=== PATIENT | male | born 1975 | race Caucasian/White ===

== ENCOUNTER 2017-01-29 12:54 | Emergency (ER) | payer OTHER ==
[~2017-01-29] VITALS: Ht 182.9 cm; Wt 104.4 kg
[~2017-01-29 12:54] MED LIST: ATIVAN0.5 MG PO; BACTRIM,SEPT1 TABLE1 PO; BENTYL10 MG PO; CIPRO500 MG PO; COLACE100 MG PO; DILAUDID2 MG PO; DULCOLAX5 MG PO; EMEND40 MG PO; ENDOCET 5-3251 EACH PO; FLAGYL500 MG PO; FLEXERIL10 MG PO; HYDROCODON-ACE1 EAC7 PO; LEVAQUIN500 MG PO; LOMOTIL TABLET1 EACH PO; OMEPRAZOLE40 M1 PO; OXYCODONE HCL15 MG PO; OXYCODONE HCL5 MG PO; OXYCONTIN15 MG PO; PRILOSEC40 MG PO; PROMETHAZINE HC25 M1 PO; PYRIDIUM200 MG PO; REGLAN10 MG PO; XELODA150 MG PO; ZOFRAN ODT4 MG PO; ZOFRAN4 MG PO; ZOLPIDEM TARTRA10 MG PO
[2017-01-29 14:19] LABS: HEMATOCRIT 37.3 % (38.0-50.0); MCH 27.2 PG (29.0-34.0); MCHC 35.4 G/DL (30.0-36.0); MCV 76.7 FL (86-99); MEAN PLAT.VOLUME 10.3 uM^3 (9.0-12.4); PLATELET COUNT 269 K/uL (156-360); RBC DIS.WIDTH-CV 13.6 % (11.8-14.6); RED BLOOD COUNT 4.86 M/uL (4.00-5.50); WHITE BLOOD COUNT 4.6 K/uL (4.1-10.2)
[2017-01-29 14:28] LABS: CHLORIDE 107 mEq/L (99-109); POTASSIUM 3.9 mEq/L (3.7-5.4); SODIUM 138 mEq/L (136-147)
[2017-01-29 14:30] LABS: GLUCOSE 99 mg/dL (70-99)
[2017-01-29 14:31] LABS: ANION GAP 12 MEQ/L (2-14)
[2017-01-29 14:32] LABS: TOTAL BILIRUBIN 0.2 mg/dL (0.0-1.0)
[2017-01-29 14:34] LABS: ALKALINE PHOSPHATASE 47 IU/L (3-129); GFR ESTIMATE (CALCULATED) > 59 mL/min/
[2017-01-29 14:35] LABS: UREA NITROGEN (BUN) 11 mg/dL (9-23)
[2017-01-29 14:37] LABS: LIPASE 29 U/L (1.0-51.0)
[2017-01-29] MEDS ORDERED: ZOFRAN ODT4 MG PO (14:37)
[2017-01-29 15:35] VITALS: BP 128/82
== END 2017-01-29 15:44 | disposition home or self-care (01) ==
LOC: EME 12:54
PROVIDERS: Nurse Practitioner Family
DX: R11.2 Nausea with vomiting, unspecified (principal); R19.7 Diarrhea, unspecified; T45.1X5A Adverse effect of antineoplastic and immunosuppressive drugs, initial encounter; C18.9 Malignant neoplasm of colon, unspecified; Z93.3 Colostomy status
CPT/HCPCS: 80053; 83690; 85027; 99281; 99284; J2405; J3010; J7030

== ENCOUNTER 2017-05-01 12:15 | Inpatient (IN) | payer OTHER ==
[~2017-05-01] VITALS: Ht 182.9 cm; Wt 114.5 kg
[~2017-05-01 12:15] MED LIST changes: -PRILOSEC40 MG PO
[2017-05-01 13:31] LABS: HEMATOCRIT 41.3 % (38.0-50.0); MCH 26.4 PG (29.0-34.0); MCHC 33.9 G/DL (30.0-36.0); MCV 77.8 FL (86-99); PLATELET COUNT 280 K/uL (156-360); RBC DIS.WIDTH-CV 12.9 % (11.8-14.6); RBC DIS.WIDTH-SD 36.4 % (39-53); RED BLOOD COUNT 5.31 M/uL (4.00-5.50)
[2017-05-01 13:42] LABS: ALBUMIN 3.8 g/dL (3.2-4.8)
[2017-05-01 13:43] LABS: CHLORIDE 103 mEq/L (99-109); POTASSIUM 3.7 mEq/L (3.7-5.4); SODIUM 137 mEq/L (136-147)
[2017-05-01 13:45] LABS: GLUCOSE 111 mg/dL (70-99); TOTAL PROTEIN 6.9 g/dL (6.4-8.3)
[2017-05-01 13:47] LABS: TOTAL BILIRUBIN 0.3 mg/dL (0.0-1.0)
[2017-05-01 13:48] LABS: ALKALINE PHOSPHATASE 57 IU/L (3-129)
[2017-05-01 13:49] LABS: CREATININE 0.8 mg/dL (0.6-1.3); GFR ESTIMATE (CALCULATED) > 59 mL/min/ (58.99-99999)
[2017-05-01 13:50] LABS: AST (GOT) 14 IU/L (2-34); UREA NITROGEN (BUN) 12 mg/dL (9-23)
[2017-05-01 13:52] LABS: ALT (GPT) 16 IU/L (3-49)
[2017-05-01] MEDS ORDERED: PROMETHAZINE HC25 M1 PO (18:19)
[2017-05-01] MEDS ORDERED: ERGOCALCIF50000 UNIT PO (18:20)
[2017-05-01] MEDS ORDERED: VENTOLIN HFA18 GM IH (18:20)
[2017-05-01] MEDS ORDERED: COMPAZINE10 MG PO (18:20)
[2017-05-01 19:49] LABS: APPEARANCE CLEAR ((CLEAR)); BILIRUBIN NEGATIVE; BLOOD NEGATIVE; COLOR YELLOW ((YELLOW)); GLUCOSE (STRIP) NEGATIVE; KETONES 5; LEUKOCYTES NEGATIVE; NITRITE NEGATIVE; PROTEIN (STRIP) 30; UCUL ADDED? NO; UROBILINOGEN 0.2 MG/DL (0.2-1.0)
[2017-05-01 20:17] LABS: SPECIFIC GRAVITY 1.092 (1.000-1.030)
[2017-05-02 01:10] VITALS: BP 115/55
[2017-05-02 04:15] VITALS: BP 98/55
[2017-05-02 08:11] VITALS: BP 100/59
[2017-05-02 09:43] LABS: BASOPHIL (%) 0.3 % (0-1); EOSINOPHIL (%) 2.8 % (0-5); EOSINOPHIL COUNT 0.1 K/uL (0-0.3); HEMATOCRIT 35.3 % (38.0-50.0); IMMATURE GRANULOCYTE (%) 0.3 % (0.0-0.7); LYMPHOCYTE (%) 11.9 % (15-42); LYMPHOCYTE COUNT 0.5 K/uL (1.0-2.8); MCH 25.8 PG (29.0-34.0); MCHC 32.6 G/DL (30.0-36.0); MCV 79.3 FL (86-99); MONOCYTE (%) 16.5 % (3-12); MONOCYTE COUNT 0.6 K/uL (0-0.8); NEUTROPHIL (%) 68.2 % (45-76); NEUTROPHIL COUNT 2.7 K/uL (1.8-6.4); PLATELET COUNT 223 K/uL (156-360); RED BLOOD COUNT 4.45 M/uL (4.00-5.50); WHITE BLOOD COUNT 3.9 K/uL (4.1-10.2)
[2017-05-02 09:57] LABS: HEMOGLOBIN 11.5 G/DL (12.5-16.6)
[2017-05-02 10:05] LABS: CHLORIDE 105 MEQ/L (99-109); CREATININE 0.7 MG/DL (0.6-1.3); GFR ESTIMATE (CALCULATED) > 59 mL/min/ (58.99-99999); GLUCOSE 100 mg/dL (70-99); POTASSIUM 3.7 MEQ/L (3.7-5.4); SODIUM 141 MEQ/L (136-147); UREA NITROGEN (BUN) 8 mg/dL (9-23)
[2017-05-02 16:37] VITALS: BP 119/63
[2017-05-03 00:03] VITALS: BP 109/67
[2017-05-03 05:10] LABS: BASOPHIL (%) 0.5 % (0-1); EOSINOPHIL (%) 3.1 % (0-5); EOSINOPHIL COUNT 0.1 K/uL (0-0.3); HEMATOCRIT 32.6 % (38.0-50.0); HEMOGLOBIN 10.8 G/DL (12.5-16.6); IMMATURE GRANULOCYTE (%) 0.2 % (0.0-0.7); LYMPHOCYTE (%) 14.6 % (15-42); LYMPHOCYTE COUNT 0.6 K/uL (1.0-2.8); MCH 26.4 PG (29.0-34.0); MCHC 33.1 G/DL (30.0-36.0); MCV 79.7 FL (86-99); MONOCYTE (%) 15.3 % (3-12); MONOCYTE COUNT 0.7 K/uL (0-0.8); NEUTROPHIL (%) 66.3 % (45-76); NEUTROPHIL COUNT 2.8 K/uL (1.8-6.4); PLATELET COUNT 168 K/uL (156-360); RBC DIS.WIDTH-CV 12.9 % (11.8-14.6); RBC DIS.WIDTH-SD 36.7 % (39-53); RED BLOOD COUNT 4.09 M/uL (4.00-5.50); WHITE BLOOD COUNT 4.3 K/uL (4.1-10.2)
[2017-05-03 05:37] LABS: CHLORIDE 107 MEQ/L (99-109); CREATININE 0.8 MG/DL (0.6-1.3); GFR ESTIMATE (CALCULATED) > 59 mL/min/ (58.99-99999); GLUCOSE 93 mg/dL (70-99); POTASSIUM 3.9 MEQ/L (3.7-5.4); SODIUM 140 MEQ/L (136-147); UREA NITROGEN (BUN) 6 mg/dL (9-23)
[2017-05-03 07:33] VITALS: BP 123/81
[2017-05-03 15:50] VITALS: BP 118/65
[2017-05-04 00:22] VITALS: BP 126/62
[2017-05-04 06:20] LABS: HEMATOCRIT 33.6 % (38.0-50.0); HEMOGLOBIN 11.1 G/DL (12.5-16.6); MCH 26.4 PG (29.0-34.0); PLATELET COUNT 169 K/uL (156-360); RBC DIS.WIDTH-CV 13.1 % (11.8-14.6); RBC DIS.WIDTH-SD 37.2 % (39-53); WHITE BLOOD COUNT 4.6 K/uL (4.1-10.2)
[2017-05-04 06:45] LABS: CHLORIDE 106 MEQ/L (99-109); CREATININE 0.8 MG/DL (0.6-1.3); GFR ESTIMATE (CALCULATED) > 59 mL/min/ (58.99-99999); GLUCOSE 112 mg/dL (70-99); POTASSIUM 3.9 MEQ/L (3.7-5.4); SODIUM 142 MEQ/L (136-147); UREA NITROGEN (BUN) 4 mg/dL (9-23)
[2017-05-04 08:22] VITALS: BP 109/55
[2017-05-04 08:27] VITALS: BP 108/58
[2017-05-04 16:16] VITALS: BP 106/65
[2017-05-05 00:35] VITALS: BP 109/63
[2017-05-05 09:37] VITALS: BP 106/57
[2017-05-05 09:44] LABS: HEMATOCRIT 35.2 % (38.0-50.0); HEMOGLOBIN 11.7 G/DL (12.5-16.6); MCHC 33.2 G/DL (30.0-36.0); MCV 78.2 FL (86-99); PLATELET COUNT 204 K/uL (156-360); RBC DIS.WIDTH-CV 12.9 % (11.8-14.6); RBC DIS.WIDTH-SD 36.7 % (39-53); WHITE BLOOD COUNT 3.9 K/uL (4.1-10.2)
[2017-05-05 17:06] VITALS: BP 112/70
[2017-05-05 23:39] VITALS: BP 115/61
[2017-05-06 06:55] VITALS: BP 114/60
[2017-05-06 09:46] LABS: HEMATOCRIT 36.6 % (38.0-50.0); HEMOGLOBIN 12.1 G/DL (12.5-16.6); MCHC 33.1 G/DL (30.0-36.0); MCV 78.5 FL (86-99); PLATELET COUNT 193 K/uL (156-360); RBC DIS.WIDTH-CV 13.1 % (11.8-14.6); RBC DIS.WIDTH-SD 37.1 % (39-53); RED BLOOD COUNT 4.66 M/uL (4.00-5.50); WHITE BLOOD COUNT 3.7 K/uL (4.1-10.2)
== END 2017-05-06 13:09 | disposition home or self-care (01) | DRG 389 ==
LOC: EME 12:15 → RME 12:15 → EDOF 18:05 → 5EAST 18:05 → ENRESERV 18:14 → EDOF 19:10 → ENRESERV 21:35 → 5EAST 05-02 00:52
PROVIDERS: Hospitalist; Internal Medicine; Physician Assistant; Surgery
DX: K56.609 Unspecified intestinal obstruction, unspecified as to partial versus complete obstruction (principal); C19 Malignant neoplasm of rectosigmoid junction; C79.11 Secondary malignant neoplasm of bladder; Z93.3 Colostomy status; Z90.49 Acquired absence of other specified parts of digestive tract; E66.9 Obesity, unspecified; Z68.34 Body mass index [BMI] 34.0-34.9, adult; G35 Multiple sclerosis; G89.3 Neoplasm related pain (acute) (chronic); Z87.442 Personal history of urinary calculi
CPT/HCPCS: 71045; 74018; 74177; 80048; 80053; 81003; 83605; 85025; 85027; 99202; 99281; 99285; J1170; J1650; J2270; J2405; J7040; J7120; S0028

== ENCOUNTER 2017-08-06 16:13 | Inpatient (IN) | payer OTHER ==
[~2017-08-06] VITALS: Ht 182.9 cm; Wt 96.9 kg
[~2017-08-06 16:13] MED LIST changes: +COMPAZINE10 MG PO; +ERGOCALCIF50000 UNIT PO; +VENTOLIN HFA18 GM IH
[2017-08-06 16:56] LABS: ALBUMIN 4.1 g/dL (3.2-4.8); CHLORIDE 93 mEq/L (99-109); POTASSIUM 3.5 mEq/L (3.7-5.4); SODIUM 133 mEq/L (136-147)
[2017-08-06 16:58] LABS: GLUCOSE 114 mg/dL (70-99); HEMATOCRIT 43.7 % (38.0-50.0); HEMOGLOBIN 14.9 G/DL (12.5-16.6); MCH 25.4 PG (29.0-34.0); MCHC 34.1 G/DL (30.0-36.0); MCV 74.6 FL (86-99); PLATELET COUNT 383 K/uL (156-360); RBC DIS.WIDTH-CV 13.6 % (11.8-14.6); RBC DIS.WIDTH-SD 36.4 % (39-53); RED BLOOD COUNT 5.86 M/uL (4.00-5.50); WHITE BLOOD COUNT 10.9 K/uL (4.1-10.2)
[2017-08-06 16:59] LABS: TOTAL PROTEIN 8.2 g/dL (6.4-8.3)
[2017-08-06 17:00] LABS: TOTAL BILIRUBIN 0.5 mg/dL (0.0-1.0)
[2017-08-06 17:02] LABS: ALKALINE PHOSPHATASE 59 IU/L (3-129); CREATININE 1.2 mg/dL (0.6-1.3); GFR ESTIMATE (CALCULATED) > 59 mL/min/ (58.99-99999)
[2017-08-06 17:03] LABS: UREA NITROGEN (BUN) 17 mg/dL (9-23)
[2017-08-06 17:04] LABS: AST (GOT) 17 IU/L (2-34)
[2017-08-06 17:05] LABS: ALT (GPT) 15 IU/L (3-49)
[2017-08-06 19:20] LABS: BASOPHIL (%) 0.3 % (0-1); EOSINOPHIL (%) 0.7 % (0-5); EOSINOPHIL COUNT 0.1 K/uL (0-0.3); IMMATURE GRANULOCYTE (%) 0.4 % (0.0-0.7); LYMPHOCYTE (%) 7.2 % (15-42); LYMPHOCYTE COUNT 0.8 K/uL (1.0-2.8); MONOCYTE COUNT 1.1 K/uL (0-0.8); NEUTROPHIL (%) 81.4 % (45-76); NEUTROPHIL COUNT 8.9 K/uL (1.8-6.4)
[2017-08-06 19:31] LABS: LIPASE 20 U/L (1.0-51.0)
[2017-08-06 20:26] LABS: APPEARANCE SL.HAZY ((CLEAR)); BILIRUBIN NEGATIVE; BLOOD LARGE; COLOR AMBER ((YELLOW)); GLUCOSE (STRIP) NEGATIVE; KETONES NEGATIVE; LEUKOCYTES TRACE; NITRITE NEGATIVE; PROTEIN (STRIP) 100; SPECIFIC GRAVITY 1.057 (1.000-1.030); UROBILINOGEN 0.2 MG/DL (0.2-1.0)
[2017-08-06 21:54] LABS: RED BLOOD CELLS TNTC /HPF (0-5)
[2017-08-06 21:55] LABS: BACTERIA 1+ /HPF; EPITHELIAL CELLS RARE /HPF; UCUL ADDED? YES
[2017-08-06 21:56] LABS: MUCUS 1+ /LPF
[2017-08-06] MEDS ORDERED: NARCAN4 MG NS (22:10)
[2017-08-06] MEDS ORDERED: OXYCODONE HCL30 MG PO (22:10)
[2017-08-06] MEDS ORDERED: POTASSIUM CHLO20 ME2 PO (22:12)
[2017-08-06] MEDS ORDERED: ONDANSETRON HCL4 MG PO (22:13)
[2017-08-07] VITALS (7 sets, daily range): BP systolic 108–147; BP diastolic 59–78
[2017-08-07 06:58] LABS: HEMATOCRIT 35.2 % (38.0-50.0); MCH 25.3 PG (29.0-34.0); MCV 76.9 FL (86-99); PLATELET COUNT UNABLE TO REPORT K/uL (156-360); RBC DIS.WIDTH-CV 13.7 % (11.8-14.6); RBC DIS.WIDTH-SD 37.9 % (39-53); WHITE BLOOD COUNT 5.2 K/uL (4.1-10.2)
[2017-08-07 06:59] LABS: HEMOGLOBIN 11.6 G/DL (12.5-16.6); PLAT.SUFFICIENCY ADEQUATE; RED BLOOD COUNT 4.58 M/uL (4.00-5.50)
[2017-08-07 07:03] LABS: INTER. NORMALIZED RATIO 1.2
[2017-08-07 07:19] LABS: CHLORIDE 95 MEQ/L (99-109); CREATININE 0.9 MG/DL (0.6-1.3); GFR ESTIMATE (CALCULATED) > 59 mL/min/ (58.99-99999); GLUCOSE 107 mg/dL (70-99); POTASSIUM 3.1 MEQ/L (3.7-5.4); SODIUM 137 MEQ/L (136-147); UREA NITROGEN (BUN) 13 mg/dL (9-23)
[2017-08-08 00:41] VITALS: BP 131/60
[2017-08-08 03:41] VITALS: BP 135/65
[2017-08-08 07:21] VITALS: BP 158/83
[2017-08-08 10:27] LABS: HEMATOCRIT 34.7 % (38.0-50.0); HEMOGLOBIN 11.6 G/DL (12.5-16.6); MCH 25.7 PG (29.0-34.0); MCHC 33.4 G/DL (30.0-36.0); MCV 76.9 FL (86-99); PLATELET COUNT 267 K/uL (156-360); RBC DIS.WIDTH-CV 14.1 % (11.8-14.6); RBC DIS.WIDTH-SD 39.6 % (39-53); RED BLOOD COUNT 4.51 M/uL (4.00-5.50); WHITE BLOOD COUNT 13.9 K/uL (4.1-10.2)
[2017-08-08 10:54] LABS: CHLORIDE 103 MEQ/L (99-109); CREATININE 1.1 MG/DL (0.6-1.3); GFR ESTIMATE (CALCULATED) > 59 mL/min/ (58.99-99999); GLUCOSE 133 mg/dL (70-99); POTASSIUM 3.4 MEQ/L (3.7-5.4); SODIUM 136 MEQ/L (136-147); UREA NITROGEN (BUN) 9 mg/dL (9-23)
[2017-08-08 11:24] VITALS: BP 166/77
[2017-08-08 15:23] VITALS: BP 155/76
[2017-08-08 20:30] VITALS: BP 146/76
[2017-08-09 00:06] VITALS: BP 147/81
[2017-08-09 03:55] VITALS: BP 147/69
[2017-08-09 06:43] LABS: HEMATOCRIT 32.9 % (38.0-50.0); HEMOGLOBIN 10.8 G/DL (12.5-16.6); MCH 25.6 PG (29.0-34.0); MCHC 32.8 G/DL (30.0-36.0); PLATELET COUNT 202 K/uL (156-360); RBC DIS.WIDTH-CV 14.4 % (11.8-14.6); RBC DIS.WIDTH-SD 40.6 % (39-53); RED BLOOD COUNT 4.22 M/uL (4.00-5.50); WHITE BLOOD COUNT 9.8 K/uL (4.1-10.2)
[2017-08-09 07:14] LABS: CHLORIDE 108 MEQ/L (99-109); CREATININE 0.9 MG/DL (0.6-1.3); GFR ESTIMATE (CALCULATED) > 59 mL/min/ (58.99-99999); POTASSIUM 3.5 MEQ/L (3.7-5.4); SODIUM 141 MEQ/L (136-147); UREA NITROGEN (BUN) 5 mg/dL (9-23)
[2017-08-09 07:15] LABS: GLUCOSE 97 mg/dL (70-99)
[2017-08-09 08:23] VITALS: BP 145/71
[2017-08-09 11:58] VITALS: BP 121/69
[2017-08-09 16:06] VITALS: BP 123/67
[2017-08-09 19:10] VITALS: BP 129/64
[2017-08-10 00:11] VITALS: BP 145/71
[2017-08-10 04:32] VITALS: BP 130/67
[2017-08-10 06:00] LABS: HEMATOCRIT 30.3 % (38.0-50.0); HEMOGLOBIN 9.8 G/DL (12.5-16.6); MCH 25.7 PG (29.0-34.0); MCHC 32.3 G/DL (30.0-36.0); MCV 79.3 FL (86-99); PLATELET COUNT 161 K/uL (156-360); RBC DIS.WIDTH-CV 14.6 % (11.8-14.6); RBC DIS.WIDTH-SD 42.4 % (39-53); RED BLOOD COUNT 3.82 M/uL (4.00-5.50); WHITE BLOOD COUNT 6.4 K/uL (4.1-10.2)
[2017-08-10 06:27] LABS: CHLORIDE 107 MEQ/L (99-109); CREATININE 1.3 MG/DL (0.6-1.3); GFR ESTIMATE (CALCULATED) > 59 mL/min/ (58.99-99999); GLUCOSE 82 mg/dL (70-99); POTASSIUM 4.1 MEQ/L (3.7-5.4); SODIUM 141 MEQ/L (136-147); UREA NITROGEN (BUN) 8 mg/dL (9-23)
[2017-08-10 08:00] VITALS: BP 134/72
[2017-08-10 12:00] VITALS: BP 129/71
[2017-08-10 20:14] VITALS: BP 130/68
[2017-08-10 23:37] VITALS: BP 141/79
[2017-08-11 03:16] VITALS: BP 140/80
[2017-08-11 05:08] LABS: HEMATOCRIT 29.8 % (38.0-50.0); HEMOGLOBIN 9.8 G/DL (12.5-16.6); MCH 25.6 PG (29.0-34.0); MCHC 32.9 G/DL (30.0-36.0); MCV 77.8 FL (86-99); PLATELET COUNT 176 K/uL (156-360); RBC DIS.WIDTH-CV 14.4 % (11.8-14.6); RBC DIS.WIDTH-SD 40.5 % (39-53); RED BLOOD COUNT 3.83 M/uL (4.00-5.50); WHITE BLOOD COUNT 5.1 K/uL (4.1-10.2)
[2017-08-11 05:34] LABS: CHLORIDE 110 MEQ/L (99-109); CREATININE 1.4 MG/DL (0.6-1.3); GFR ESTIMATE (CALCULATED) > 59 mL/min/ (58.99-99999); GLUCOSE 87 mg/dL (70-99); POTASSIUM 3.9 MEQ/L (3.7-5.4); SODIUM 142 MEQ/L (136-147); UREA NITROGEN (BUN) 8 mg/dL (9-23)
[2017-08-11 08:03] VITALS: BP 151/79
[2017-08-11 12:04] VITALS: BP 132/71
[2017-08-11 16:24] VITALS: BP 145/71
[2017-08-11 19:22] VITALS: BP 138/78
[2017-08-11 23:32] VITALS: BP 140/87
[2017-08-12 03:54] VITALS: BP 165/80
[2017-08-12 06:19] LABS: CHLORIDE 109 MEQ/L (99-109); CREATININE 1.5 MG/DL (0.6-1.3); GFR ESTIMATE (CALCULATED) 55 mL/min/ (58.99-99999); GLUCOSE 88 mg/dL (70-99); POTASSIUM 3.8 MEQ/L (3.7-5.4); SODIUM 143 MEQ/L (136-147); UREA NITROGEN (BUN) 8 mg/dL (9-23)
[2017-08-12 07:55] VITALS: BP 154/90
[2017-08-12 08:17] LABS: HEMATOCRIT 31.5 % (38.0-50.0); HEMOGLOBIN 10.1 G/DL (12.5-16.6); MCH 25.2 PG (29.0-34.0); MCHC 32.1 G/DL (30.0-36.0); MCV 78.6 FL (86-99); PLATELET COUNT 199 K/uL (156-360); RBC DIS.WIDTH-CV 14.3 % (11.8-14.6); RBC DIS.WIDTH-SD 40.6 % (39-53); RED BLOOD COUNT 4.01 M/uL (4.00-5.50); WHITE BLOOD COUNT 5.4 K/uL (4.1-10.2)
[2017-08-12 09:14] LABS: HEMATOCRIT 31.8 % (38.0-50.0); HEMOGLOBIN 10.1 G/DL (12.5-16.6); MCH 24.7 PG (29.0-34.0); MCHC 31.8 G/DL (30.0-36.0); MCV 77.8 FL (86-99); PLATELET COUNT 200 K/uL (156-360); RBC DIS.WIDTH-SD 39.7 % (39-53); RED BLOOD COUNT 4.09 M/uL (4.00-5.50); WHITE BLOOD COUNT 5.3 K/uL (4.1-10.2)
[2017-08-12 12:03] VITALS: BP 131/70
[2017-08-12 15:43] VITALS: BP 143/86
[2017-08-12 16:24] LABS: CHLORIDE 109 MEQ/L (99-109); POTASSIUM 3.8 MEQ/L (3.7-5.4); SODIUM 143 MEQ/L (136-147)
[2017-08-12 16:29] LABS: CREATININE 1.5 MG/DL (0.6-1.3); GFR ESTIMATE (CALCULATED) 55 mL/min/ (58.99-99999); GLUCOSE 107 mg/dL (70-99); UREA NITROGEN (BUN) 8 mg/dL (9-23)
[2017-08-12 19:26] VITALS: BP 146/79
[2017-08-12 23:16] VITALS: BP 145/73
[2017-08-13 03:37] VITALS: BP 137/82
[2017-08-13 07:00] LABS: HEMATOCRIT 30.3 % (38.0-50.0); HEMOGLOBIN 9.8 G/DL (12.5-16.6); MCH 25.1 PG (29.0-34.0); MCHC 32.3 G/DL (30.0-36.0); MCV 77.5 FL (86-99); PLATELET COUNT 187 K/uL (156-360); RBC DIS.WIDTH-SD 39.7 % (39-53); RED BLOOD COUNT 3.91 M/uL (4.00-5.50); WHITE BLOOD COUNT 5.6 K/uL (4.1-10.2)
[2017-08-13 07:23] LABS: CHLORIDE 106 MEQ/L (99-109); CREATININE 0.8 MG/DL (0.6-1.3); GFR ESTIMATE (CALCULATED) > 59 mL/min/ (58.99-99999); GLUCOSE 84 mg/dL (70-99); POTASSIUM 3.8 MEQ/L (3.7-5.4); SODIUM 142 MEQ/L (136-147); UREA NITROGEN (BUN) 6 mg/dL (9-23)
[2017-08-13 07:58] VITALS: BP 140/81
[2017-08-13 12:00] VITALS: BP 138/71
[2017-08-13 15:50] VITALS: BP 133/84
[2017-08-13 23:30] VITALS: BP 141/82
[2017-08-14 06:27] LABS: HEMATOCRIT 31.4 % (38.0-50.0); HEMOGLOBIN 9.9 G/DL (12.5-16.6); MCH 24.6 PG (29.0-34.0); MCHC 31.5 G/DL (30.0-36.0); MCV 78.1 FL (86-99); PLATELET COUNT 193 K/uL (156-360); RBC DIS.WIDTH-CV 13.7 % (11.8-14.6); RBC DIS.WIDTH-SD 39.2 % (39-53); RED BLOOD COUNT 4.02 M/uL (4.00-5.50)
[2017-08-14 06:55] LABS: CHLORIDE 103 MEQ/L (99-109); GFR ESTIMATE (CALCULATED) > 59 mL/min/ (58.99-99999); GLUCOSE 88 mg/dL (70-99); POTASSIUM 4.1 MEQ/L (3.7-5.4); SODIUM 140 MEQ/L (136-147); UREA NITROGEN (BUN) 7 mg/dL (9-23)
[2017-08-14 07:04] LABS: CREATININE 1.3 MG/DL (0.6-1.3)
[2017-08-14 08:31] VITALS: BP 132/81
[2017-08-14 12:01] VITALS: BP 129/74
[2017-08-14 15:40] VITALS: BP 137/76
[2017-08-14 20:02] VITALS: BP 125/73
[2017-08-14 23:43] VITALS: BP 119/72
[2017-08-15 04:04] VITALS: BP 130/77
[2017-08-15 06:31] LABS: HEMATOCRIT 32.1 % (38.0-50.0); HEMOGLOBIN 10.1 G/DL (12.5-16.6); MCH 24.8 PG (29.0-34.0); MCHC 31.5 G/DL (30.0-36.0); MCV 78.7 FL (86-99); PLATELET COUNT 189 K/uL (156-360); RBC DIS.WIDTH-CV 13.6 % (11.8-14.6); RBC DIS.WIDTH-SD 38.6 % (39-53); RED BLOOD COUNT 4.08 M/uL (4.00-5.50); WHITE BLOOD COUNT 4.5 K/uL (4.1-10.2)
[2017-08-15 07:07] LABS: CHLORIDE 105 MEQ/L (99-109); CREATININE 1.5 MG/DL (0.6-1.3); GFR ESTIMATE (CALCULATED) 55 mL/min/ (58.99-99999); GLUCOSE 84 mg/dL (70-99); POTASSIUM 4.2 MEQ/L (3.7-5.4); SODIUM 141 MEQ/L (136-147); UREA NITROGEN (BUN) 8 mg/dL (9-23)
[2017-08-15 08:00] VITALS: BP 134/74
[2017-08-15 15:26] VITALS: BP 138/78
[2017-08-15 20:00] VITALS: BP 236/80
[2017-08-16 00:39] VITALS: BP 136/79
[2017-08-16 03:53] VITALS: BP 138/75
[2017-08-16 06:13] LABS: HEMATOCRIT 31.4 % (38.0-50.0); HEMOGLOBIN 10.2 G/DL (12.5-16.6); MCH 25.2 PG (29.0-34.0); MCHC 32.5 G/DL (30.0-36.0); MCV 77.7 FL (86-99); PLATELET COUNT 229 K/uL (156-360); RBC DIS.WIDTH-CV 13.6 % (11.8-14.6); RBC DIS.WIDTH-SD 38.5 % (39-53); RED BLOOD COUNT 4.04 M/uL (4.00-5.50); WHITE BLOOD COUNT 5.2 K/uL (4.1-10.2)
[2017-08-16 06:35] LABS: CHLORIDE 105 MEQ/L (99-109); GFR ESTIMATE (CALCULATED) > 59 mL/min/ (58.99-99999); GLUCOSE 89 mg/dL (70-99); POTASSIUM 4.4 MEQ/L (3.7-5.4); SODIUM 140 MEQ/L (136-147); UREA NITROGEN (BUN) 5 mg/dL (9-23)
[2017-08-16 06:38] LABS: CREATININE 0.9 MG/DL (0.6-1.3)
[2017-08-16 08:28] VITALS: BP 147/77
[2017-08-16 15:50] VITALS: BP 128/79
[2017-08-16 23:21] VITALS: BP 124/76
[2017-08-17 08:18] VITALS: BP 124/73
== END 2017-08-17 13:04 | disposition home or self-care (01) | DRG 330 ==
LOC: EME 16:13 → 3EAST 22:31 → EDOF 22:31 → ENRESERV 22:34 → 3EAST 08-07 01:16
PROVIDERS: Surgery
PROC: 0DB80ZZ Excision of Small Intestine, Open Approach (ICD-10-PCS; principal; 2017-08-07)
DX: C18.9 Malignant neoplasm of colon, unspecified (principal); K56.50 Intestinal adhesions [bands], unspecified as to partial versus complete obstruction; C20 Malignant neoplasm of rectum; D64.9 Anemia, unspecified; E66.01 Morbid (severe) obesity due to excess calories; Z93.3 Colostomy status; N20.0 Calculus of kidney; N30.40 Irradiation cystitis without hematuria; J45.909 Unspecified asthma, uncomplicated; G35 Multiple sclerosis; G43.909 Migraine, unspecified, not intractable, without status migrainosus; K21.9 Gastro-esophageal reflux disease without esophagitis; F41.9 Anxiety disorder, unspecified; Z86.14 Personal history of Methicillin resistant Staphylococcus aureus infection; Z87.440 Personal history of urinary (tract) infections; E66.9 Obesity, unspecified; Z68.28 Body mass index [BMI] 28.0-28.9, adult; D50.9 Iron deficiency anemia, unspecified; G89.29 Other chronic pain; Z91.19 Patient's noncompliance with other medical treatment and regimen; Z92.3 Personal history of irradiation; Z90.49 Acquired absence of other specified parts of digestive tract; R31.0 Gross hematuria; K43.2 Incisional hernia without obstruction or gangrene; E86.0 Dehydration; E87.8 Other disorders of electrolyte and fluid balance, not elsewhere classified; F11.20 Opioid dependence, uncomplicated
CPT/HCPCS: 74019; 74021; 74177; 80048; 80048 91; 80053; 81003; 83605; 83690; 85025; 85027; 85610; 86850; 86900; 86901; 87070; 87075; 87086 GA; 87205; 88307; 94799; 99202; 99281; 99285; C9113; J0131; J0330; J0696; J1100; J1170; J1650; J1885; J2060; J2250; J2405; J2550; J2710; J2765; J3010; J3480; J7030; J7042; J7050; J7643; S0020; S0074

== ENCOUNTER 2017-09-08 20:30 | Inpatient (IN) | payer OTHER ==
[~2017-09-08] VITALS: Ht 182.9 cm; Wt 88.1 kg
[~2017-09-08 20:30] MED LIST changes: +NARCAN4 MG NS; +ONDANSETRON HCL4 MG PO; +OXYCODONE HCL30 MG PO; +POTASSIUM CHLO20 ME2 PO
[2017-09-08 21:09] LABS: HEMATOCRIT 34.2 % (38.0-50.0); HEMOGLOBIN 11.6 G/DL (12.5-16.6); MCH 25.4 PG (29.0-34.0); MCHC 33.9 G/DL (30.0-36.0); PLATELET COUNT 232 K/uL (156-360); RBC DIS.WIDTH-CV 14.1 % (11.8-14.6); RBC DIS.WIDTH-SD 36.8 % (39-53); RED BLOOD COUNT 4.56 M/uL (4.00-5.50); WHITE BLOOD COUNT 7.3 K/uL (4.1-10.2)
[2017-09-08 21:18] LABS: ALBUMIN 3.8 g/dL (3.2-4.8); CHLORIDE 103 mEq/L (99-109); POTASSIUM 3.5 mEq/L (3.7-5.4); SODIUM 141 mEq/L (136-147)
[2017-09-08 21:20] LABS: GLUCOSE 93 mg/dL (70-99); TOTAL PROTEIN 8.1 g/dL (6.4-8.3)
[2017-09-08 21:22] LABS: TOTAL BILIRUBIN 0.5 mg/dL (0.0-1.0)
[2017-09-08 21:24] LABS: ALKALINE PHOSPHATASE 55 IU/L (3-129); CREATININE 0.8 mg/dL (0.6-1.3); GFR ESTIMATE (CALCULATED) > 59 mL/min/ (58.99-99999)
[2017-09-08 21:25] LABS: UREA NITROGEN (BUN) 9 mg/dL (9-23)
[2017-09-08 21:26] LABS: AST (GOT) 14 IU/L (2-34)
[2017-09-08 21:27] LABS: ALT (GPT) 11 IU/L (3-49)
[2017-09-09 01:06] LABS: APPEARANCE CLEAR ((CLEAR)); BILIRUBIN NEGATIVE; BLOOD NEGATIVE; COLOR YELLOW ((YELLOW)); GLUCOSE (STRIP) NEGATIVE; KETONES 5; LEUKOCYTES NEGATIVE; NITRITE NEGATIVE; PROTEIN (STRIP) 30; SPECIFIC GRAVITY 1.023 (1.000-1.030)
[2017-09-09 03:06] VITALS: BP 144/55
[2017-09-09 07:15] VITALS: BP 113/74
[2017-09-09 07:58] LABS: THYROTROPIN (TSH) 1.3 MIU/L (0.4-5.5)
[2017-09-09 11:59] VITALS: BP 121/73
[2017-09-09 12:05] LABS: CHLORIDE 107 MEQ/L (99-109); CREATININE 0.7 MG/DL (0.6-1.3); GFR ESTIMATE (CALCULATED) > 59 mL/min/ (58.99-99999); GLUCOSE 86 mg/dL (70-99); POTASSIUM 3.7 MEQ/L (3.7-5.4); SODIUM 142 MEQ/L (136-147); UREA NITROGEN (BUN) 7 mg/dL (9-23)
[2017-09-09 16:35] VITALS: BP 125/68
[2017-09-09 20:05] VITALS: BP 129/71
[2017-09-10 00:28] VITALS: BP 126/74
[2017-09-10 03:57] VITALS: BP 116/84
[2017-09-10 07:30] VITALS: BP 131/83
[2017-09-10 08:26] LABS: MCH 25.3 PG (29.0-34.0); MCHC 33.3 G/DL (30.0-36.0); MCV 75.9 FL (86-99); PLATELET COUNT 168 K/uL (156-360); RBC DIS.WIDTH-CV 14.1 % (11.8-14.6); RED BLOOD COUNT 3.95 M/uL (4.00-5.50); WHITE BLOOD COUNT 5.2 K/uL (4.1-10.2)
[2017-09-10 08:49] LABS: CHLORIDE 104 MEQ/L (99-109); CREATININE 0.7 MG/DL (0.6-1.3); GFR ESTIMATE (CALCULATED) > 59 mL/min/ (58.99-99999); GLUCOSE 84 mg/dL (70-99); POTASSIUM 3.8 MEQ/L (3.7-5.4); SODIUM 139 MEQ/L (136-147); UREA NITROGEN (BUN) 6 mg/dL (9-23)
[2017-09-10 11:47] VITALS: BP 153/70
[2017-09-10 13:25] LABS: INTER. NORMALIZED RATIO 1.3
[2017-09-10 13:28] LABS: PTT 30.4 SEC (25-37)
[2017-09-10 15:40] VITALS: BP 141/79
[2017-09-10 19:25] VITALS: BP 137/69
[2017-09-11 00:06] VITALS: BP 129/72
[2017-09-11 03:46] VITALS: BP 131/78
[2017-09-11 08:08] VITALS: BP 137/82
[2017-09-11 11:38] VITALS: BP 127/73
[2017-09-11 16:25] VITALS: BP 133/69
[2017-09-11 19:39] VITALS: BP 138/75
[2017-09-12 00:02] VITALS: BP 132/77
[2017-09-12 04:20] VITALS: BP 133/79
[2017-09-12 11:37] VITALS: BP 150/78
[2017-09-12 15:32] VITALS: BP 145/88
[2017-09-12 18:45] VITALS: BP 144/70
[2017-09-12 23:36] VITALS: BP 135/82
[2017-09-13 03:23] VITALS: BP 142/96
[2017-09-13 06:27] VITALS: BP 130/70
[2017-09-13 11:19] VITALS: BP 130/68
[2017-09-13 15:31] VITALS: BP 142/75
[2017-09-13 23:08] VITALS: BP 131/71
[2017-09-14 05:07] LABS: BASOPHIL (%) 0.2 % (0-1); EOSINOPHIL (%) 2.4 % (0-5); EOSINOPHIL COUNT 0.1 K/uL (0-0.3); HEMATOCRIT 28.6 % (38.0-50.0); HEMOGLOBIN 9.3 G/DL (12.5-16.6); IMMATURE GRANULOCYTE (%) 0.2 % (0.0-0.7); LYMPHOCYTE (%) 8.9 % (15-42); LYMPHOCYTE COUNT 0.4 K/uL (1.0-2.8); MCH 24.9 PG (29.0-34.0); MCHC 32.5 G/DL (30.0-36.0); MCV 76.5 FL (86-99); MONOCYTE (%) 19.5 % (3-12); MONOCYTE COUNT 0.8 K/uL (0-0.8); NEUTROPHIL (%) 68.8 % (45-76); NEUTROPHIL COUNT 2.9 K/uL (1.8-6.4); PLATELET COUNT 135 K/uL (156-360); RBC DIS.WIDTH-CV 15.1 % (11.8-14.6); RBC DIS.WIDTH-SD 39.6 % (39-53); RED BLOOD COUNT 3.74 M/uL (4.00-5.50); WHITE BLOOD COUNT 4.3 K/uL (4.1-10.2)
[2017-09-14 05:46] LABS: CHLORIDE 103 MEQ/L (99-109); CREATININE 0.7 MG/DL (0.6-1.3); GFR ESTIMATE (CALCULATED) > 59 mL/min/ (58.99-99999); GLUCOSE 118 mg/dL (70-99); POTASSIUM 3.4 MEQ/L (3.7-5.4); SODIUM 139 MEQ/L (136-147); UREA NITROGEN (BUN) 10 mg/dL (9-23)
[2017-09-14 06:59] VITALS: BP 119/70
[2017-09-14 11:15] VITALS: BP 122/71
[2017-09-14 14:20] VITALS: BP 126/67
[2017-09-14 15:24] VITALS: BP 122/63
[2017-09-14 19:05] VITALS: BP 118/67
[2017-09-14 23:05] VITALS: BP 131/71
[2017-09-15 03:51] VITALS: BP 119/65
[2017-09-15 06:50] VITALS: BP 115/65
[2017-09-15 09:25] LABS: HEMATOCRIT 29.5 % (38.0-50.0); HEMOGLOBIN 9.5 G/DL (12.5-16.6); MCH 24.9 PG (29.0-34.0); MCHC 32.2 G/DL (30.0-36.0); MCV 77.4 FL (86-99); PLATELET COUNT 128 K/uL (156-360); RBC DIS.WIDTH-CV 15.3 % (11.8-14.6); RBC DIS.WIDTH-SD 41.3 % (39-53); RED BLOOD COUNT 3.81 M/uL (4.00-5.50); WHITE BLOOD COUNT 3.4 K/uL (4.1-10.2)
[2017-09-15 09:49] LABS: CHLORIDE 99 MEQ/L (99-109); CREATININE 0.8 MG/DL (0.6-1.3); GFR ESTIMATE (CALCULATED) > 59 mL/min/ (58.99-99999); GLUCOSE 106 mg/dL (70-99); POTASSIUM 3.7 MEQ/L (3.7-5.4); SODIUM 136 MEQ/L (136-147); UREA NITROGEN (BUN) 9 mg/dL (9-23)
[2017-09-15 11:05] VITALS: BP 112/60
[2017-09-15 15:24] VITALS: BP 119/66
[2017-09-15 20:04] VITALS: BP 130/71
[2017-09-16 00:11] VITALS: BP 137/63
[2017-09-16 03:41] VITALS: BP 138/76
[2017-09-16 06:00] LABS: HEMATOCRIT 27.7 % (38.0-50.0); HEMOGLOBIN 9.2 G/DL (12.5-16.6); MCH 25.6 PG (29.0-34.0); MCHC 33.2 G/DL (30.0-36.0); MCV 77.2 FL (86-99); PLATELET COUNT 131 K/uL (156-360); RBC DIS.WIDTH-CV 15.3 % (11.8-14.6); RBC DIS.WIDTH-SD 41.6 % (39-53); RED BLOOD COUNT 3.59 M/uL (4.00-5.50); WHITE BLOOD COUNT 3.4 K/uL (4.1-10.2)
[2017-09-16 07:00] VITALS: BP 113/69
[2017-09-16] MEDS ORDERED: DOCUSATE SODIU100 MG PO (10:49)
[2017-09-16] MEDS ORDERED: POLYETHYLENE GL17 GM PO (10:53)
[2017-09-16] MEDS ORDERED: OXYCODONE HCL15 MG PO (10:56)
== END 2017-09-16 16:05 | disposition home health service (06) | DRG 948 ==
LOC: EME 20:30 → EDOF 09-09 02:14 → ENRESERV 09-09 02:15 → 4SOUTH 09-09 02:59 → CANRESERV 09-11 09:38 → ENRESERV 09-11 09:38 → 5EAST 09-14 13:27 → ENPENDDIS 09-16 → 5EAST 09-16 16:05
PROVIDERS: Emergency Medicine; Hospitalist; Physician Assistant Medical; Radiology Diagnostic Radiology
PROC: 0T9030Z Drainage of Right Kidney with Drainage Device, Percutaneous Approach (ICD-10-PCS; principal; 2017-09-10)
DX: G89.3 Neoplasm related pain (acute) (chronic) (principal); R10.31 Right lower quadrant pain; C19 Malignant neoplasm of rectosigmoid junction; N13.1 Hydronephrosis with ureteral stricture, not elsewhere classified; D64.3 Other sideroblastic anemias; K59.03 Drug induced constipation; R41.0 Disorientation, unspecified; T40.2X5A Adverse effect of other opioids, initial encounter; G35 Multiple sclerosis; J44.9 Chronic obstructive pulmonary disease, unspecified; M54.5 Low back pain; K21.0 Gastro-esophageal reflux disease with esophagitis; N20.0 Calculus of kidney; R11.2 Nausea with vomiting, unspecified; T45.1X5A Adverse effect of antineoplastic and immunosuppressive drugs, initial encounter; F41.9 Anxiety disorder, unspecified; Z79.899 Other long term (current) drug therapy; Z92.3 Personal history of irradiation
CPT/HCPCS: 50433; 74018; 74022; 74177; 76000; 76770; 80048; 80053; 81003; 82948; 83605; 83690; 84439; 84443; 85025; 85027; 85610; 85730; 87040; 94799; 99281; 99285; C1729; C1769; J0744; J1170; J1650; J1885; J2405; J2765; J2997; J3010; J7030; J7050

== ENCOUNTER 2017-10-06 03:49 | Inpatient (IN) | payer OTHER ==
[~2017-10-06] VITALS: Ht 180.3 cm; Wt 85.3 kg
[~2017-10-06 03:49] MED LIST changes: +DOCUSATE SODIU100 MG PO; +POLYETHYLENE GL17 GM PO
[2017-10-06 05:29] LABS: HEMATOCRIT 29.7 % (38.0-50.0); HEMOGLOBIN 9.9 G/DL (12.5-16.6); MCH 26.3 PG (29.0-34.0); MCHC 33.3 G/DL (30.0-36.0); MCV 78.8 FL (86-99); RBC DIS.WIDTH-CV 17.6 % (11.8-14.6); RBC DIS.WIDTH-SD 48.8 % (39-53); RED BLOOD COUNT 3.77 M/uL (4.00-5.50); WHITE BLOOD COUNT 27.1 K/uL (4.1-10.2)
[2017-10-06 05:31] LABS: PLATELET COUNT 183 K/uL (156-360)
[2017-10-06 05:38] LABS: ALBUMIN 3.7 g/dL (3.2-4.8)
[2017-10-06 05:39] LABS: CHLORIDE 103 mEq/L (99-109); SODIUM 136 mEq/L (136-147)
[2017-10-06 05:41] LABS: GLUCOSE 98 mg/dL (70-99); TOTAL PROTEIN 7.5 g/dL (6.4-8.3)
[2017-10-06 05:43] LABS: TOTAL BILIRUBIN 0.5 mg/dL (0.0-1.0)
[2017-10-06 05:44] LABS: ALKALINE PHOSPHATASE 69 IU/L (3-129)
[2017-10-06 05:45] LABS: CREATININE 0.7 mg/dL (0.6-1.3); GFR ESTIMATE (CALCULATED) > 59 mL/min/ (58.99-99999)
[2017-10-06 05:46] LABS: AST (GOT) 14 IU/L (2-34); UREA NITROGEN (BUN) 14 mg/dL (9-23)
[2017-10-06 05:48] LABS: ALT (GPT) 8 IU/L (3-49); LIPASE 14 U/L (1.0-51.0)
[2017-10-06 06:00] LABS: APPEARANCE CLOUDY ((CLEAR)); BILIRUBIN NEGATIVE; BLOOD MODERATE; COLOR YELLOW ((YELLOW)); GLUCOSE (STRIP) NEGATIVE; KETONES NEGATIVE; LEUKOCYTES LARGE; NITRITE NEGATIVE; PROTEIN (STRIP) 100; SPECIFIC GRAVITY 1.014 (1.000-1.030); UROBILINOGEN 0.2 MG/DL (0.2-1.0)
[2017-10-06 06:04] LABS: BACTERIA 3+ /HPF; EPITHELIAL CELLS NONE SEEN /HPF; MUCUS TRACE /LPF; RED BLOOD CELLS TNTC /HPF (0-5); UCUL ADDED? YES; WHITE BLOOD CELLS TNTC /HPF (0-5)
[2017-10-06] MEDS ORDERED: OXYCODONE HCL30 MG PO (07:50)
[2017-10-06] MEDS ORDERED: MIRALAX17 GM PO (07:51)
[2017-10-06] MEDS ORDERED: COLACE100 MG PO (07:51)
[2017-10-06 11:15] VITALS: BP 130/74
[2017-10-06 16:40] VITALS: BP 120/67
[2017-10-07 00:45] VITALS: BP 107/66
[2017-10-07 06:23] LABS: HEMATOCRIT 26.6 % (38.0-50.0); HEMOGLOBIN 8.7 G/DL (12.5-16.6); MCH 25.8 PG (29.0-34.0); MCHC 32.7 G/DL (30.0-36.0); MCV 78.9 FL (86-99); PLATELET COUNT 162 K/uL (156-360); RBC DIS.WIDTH-CV 17.8 % (11.8-14.6); RBC DIS.WIDTH-SD 49.6 % (39-53); RED BLOOD COUNT 3.37 M/uL (4.00-5.50); WHITE BLOOD COUNT 22.2 K/uL (4.1-10.2)
[2017-10-07 06:56] LABS: ALBUMIN 3.1 G/DL (3.2-4.8); ALT (GPT) 7 IU/L (3-49); AST (GOT) 11 IU/L (2-34); CHLORIDE 103 MEQ/L (99-109); CREATININE 0.7 MG/DL (0.6-1.3); DIRECT BILIRUBIN 0.1 mg/dL (0.0-0.3); GFR ESTIMATE (CALCULATED) > 59 mL/min/ (58.99-99999); GLUCOSE 112 mg/dL (70-99); POTASSIUM 3.9 MEQ/L (3.7-5.4); PREALBUMIN 9.2 mg/dL (10-40); SODIUM 135 MEQ/L (136-147); TOTAL PROTEIN 6.7 G/DL (6.4-8.3); TRIGLYCERIDES 70 MG/DL (Normal: <150); UREA NITROGEN (BUN) 8 mg/dL (9-23)
[2017-10-07 06:59] LABS: ALKALINE PHOSPHATASE 87 IU/L (3-129); TOTAL BILIRUBIN 0.4 MG/DL (0.0-1.0)
[2017-10-07 07:18] LABS: ALKALINE PHOSPHATASE 65 IU/L (3-129); ALT (GPT) 6 IU/L (3-49); AST (GOT) 11 IU/L (2-34); CHLORIDE 102 MEQ/L (99-109); CREATININE 0.7 MG/DL (0.6-1.3); GFR ESTIMATE (CALCULATED) > 59 mL/min/ (58.99-99999); GLUCOSE 111 mg/dL (70-99); PHOSPHORUS 2.4 mg/dL (2.5-4.9); POTASSIUM 3.9 MEQ/L (3.7-5.4); SODIUM 135 MEQ/L (136-147); TOTAL BILIRUBIN 0.4 MG/DL (0.0-1.0); TOTAL PROTEIN 6.1 G/DL (6.4-8.3); UREA NITROGEN (BUN) 8 mg/dL (9-23)
[2017-10-07 07:30] VITALS: BP 137/74
[2017-10-07 07:33] LABS: BAND NEUTROPHILS 4.3 % (0-8.0); EOSINOPHIL ABS CT 0.2; EOSINOPHILS 0.9 % (0-5.0); LYMPHOCYTES 0.9 % (15.0-45.0); MONOCYTES 3.5 % (0-9.0); SEG.NEUTROPHILS 90.4 % (46.0-76.0)
[2017-10-07 15:40] VITALS: BP 134/78
[2017-10-07 17:24] LABS: ANISOCYTOSIS 2+; MICROCYTOSIS 2+; PLAT.SUFFICIENCY ADEQUATE; POIKILOCYTOSIS 1+
[2017-10-08 02:03] VITALS: BP 118/67
[2017-10-08 06:39] LABS: CHLORIDE 103 MEQ/L (99-109); CREATININE 0.6 MG/DL (0.6-1.3); GFR ESTIMATE (CALCULATED) > 59 mL/min/ (58.99-99999); GLUCOSE 99 mg/dL (70-99); MAGNESIUM 2.2 mg/dl (1.3-2.7); PHOSPHORUS 2.7 mg/dL (2.5-4.9); POTASSIUM 3.8 MEQ/L (3.7-5.4); SODIUM 137 MEQ/L (136-147); UREA NITROGEN (BUN) 7 mg/dL (9-23)
[2017-10-08 07:25] VITALS: BP 126/68
[2017-10-08 09:27] LABS: BASOPHIL (%) 0.2 % (0-1); BASOPHIL COUNT 0.1 K/uL (0-0.1); EOSINOPHIL (%) 0.4 % (0-5); EOSINOPHIL COUNT 0.1 K/uL (0-0.3); HEMOGLOBIN 9.9 G/DL (12.5-16.6); IMMATURE GRANULOCYTE (%) 0.9 % (0.0-0.7); LYMPHOCYTE (%) 2.6 % (15-42); LYMPHOCYTE COUNT 0.6 K/uL (1.0-2.8); MCH 25.5 PG (29.0-34.0); MCHC 31.9 G/DL (30.0-36.0); MCV 79.9 FL (86-99); MONOCYTE (%) 6.6 % (3-12); MONOCYTE COUNT 1.5 K/uL (0-0.8); NEUTROPHIL (%) 89.3 % (45-76); PLATELET COUNT 180 K/uL (156-360); RBC DIS.WIDTH-CV 18.1 % (11.8-14.6); RBC DIS.WIDTH-SD 51.2 % (39-53); RED BLOOD COUNT 3.88 M/uL (4.00-5.50); WHITE BLOOD COUNT 22.5 K/uL (4.1-10.2)
[2017-10-08 10:00] VITALS: BP 123/77
[2017-10-08 11:58] LABS: 24 HR VOLUME 4500 MLS; URINE UREA NITROGEN 5355 MG/24 HR
[2017-10-08 16:02] VITALS: BP 121/59
[2017-10-09 06:29] LABS: HEMATOCRIT 28.6 % (38.0-50.0); HEMOGLOBIN 9.3 G/DL (12.5-16.6); MCH 25.5 PG (29.0-34.0); MCHC 32.5 G/DL (30.0-36.0); MCV 78.4 FL (86-99); PLATELET COUNT 157 K/uL (156-360); RBC DIS.WIDTH-CV 17.9 % (11.8-14.6); RBC DIS.WIDTH-SD 49.8 % (39-53); RED BLOOD COUNT 3.65 M/uL (4.00-5.50); WHITE BLOOD COUNT 16.7 K/uL (4.1-10.2)
[2017-10-09 06:49] LABS: CHLORIDE 104 MEQ/L (99-109); CREATININE 0.5 MG/DL (0.6-1.3); GFR ESTIMATE (CALCULATED) > 59 mL/min/ (58.99-99999); GLUCOSE 99 mg/dL (70-99); MAGNESIUM 2.2 mg/dl (1.3-2.7); SODIUM 135 MEQ/L (136-147); UREA NITROGEN (BUN) 9 mg/dL (9-23)
[2017-10-09 07:03] VITALS: BP 118/70
[2017-10-09 07:25] LABS: ABS NEUTROPHIL COUNT 14.5; ANISOCYTOSIS 1+; BAND NEUTROPHILS 8.7 % (0-8.0); EOSINOPHIL ABS CT 0; LYMPHOCYTES 2.6 % (15.0-45.0); METAMYELOCYTES 0.9 %; MICROCYTOSIS 1+; MONOCYTES 9.6 % (0-9.0); OVALOCYTES 1+; PLAT.SUFFICIENCY ADEQUATE; POIKILOCYTOSIS 1+; SEG.NEUTROPHILS 78.2 % (46.0-76.0); TEAR DROP CELLS 1+
[2017-10-09 16:08] VITALS: BP 131/73
[2017-10-10 00:53] VITALS: BP 106/59
[2017-10-10 06:20] LABS: HEMATOCRIT 28.8 % (38.0-50.0); HEMOGLOBIN 9.4 G/DL (12.5-16.6); MCH 25.5 PG (29.0-34.0); MCHC 32.6 G/DL (30.0-36.0); MCV 78.3 FL (86-99); PLATELET COUNT 151 K/uL (156-360); RBC DIS.WIDTH-CV 17.8 % (11.8-14.6); RBC DIS.WIDTH-SD 49.9 % (39-53); RED BLOOD COUNT 3.68 M/uL (4.00-5.50); WHITE BLOOD COUNT 10.6 K/uL (4.1-10.2)
[2017-10-10 06:50] LABS: CHLORIDE 103 MEQ/L (99-109); CREATININE 0.5 MG/DL (0.6-1.3); GFR ESTIMATE (CALCULATED) > 59 mL/min/ (58.99-99999); GLUCOSE 103 mg/dL (70-99); PHOSPHORUS 3.5 mg/dL (2.5-4.9); POTASSIUM 4.2 MEQ/L (3.7-5.4); SODIUM 136 MEQ/L (136-147); UREA NITROGEN (BUN) 11 mg/dL (9-23)
[2017-10-10 07:01] VITALS: BP 120/71
[2017-10-10 07:10] LABS: ABS NEUTROPHIL COUNT 9.3; BAND NEUTROPHILS 5.2 % (0-8.0); EOSINOPHIL ABS CT 0.1; EOSINOPHILS 0.9 % (0-5.0); LYMPHOCYTES 4.3 % (15.0-45.0); SEG.NEUTROPHILS 82.6 % (46.0-76.0); SMUDGE CELLS 4.3
[2017-10-10 11:05] VITALS: BP 116/70
[2017-10-10 15:20] VITALS: BP 110/73
[2017-10-10 19:08] VITALS: BP 120/77
[2017-10-10 23:04] VITALS: BP 131/71
[2017-10-11 02:57] VITALS: BP 127/72
[2017-10-11 05:58] LABS: BASOPHIL (%) 0.3 % (0-1); EOSINOPHIL (%) 0.8 % (0-5); EOSINOPHIL COUNT 0.1 K/uL (0-0.3); HEMATOCRIT 29.2 % (38.0-50.0); HEMOGLOBIN 9.2 G/DL (12.5-16.6); IMMATURE GRANULOCYTE (%) 0.4 % (0.0-0.7); LYMPHOCYTE (%) 5.9 % (15-42); LYMPHOCYTE COUNT 0.7 K/uL (1.0-2.8); MCH 25.2 PG (29.0-34.0); MCHC 31.5 G/DL (30.0-36.0); MONOCYTE (%) 15.8 % (3-12); MONOCYTE COUNT 1.8 K/uL (0-0.8); NEUTROPHIL (%) 76.8 % (45-76); NEUTROPHIL COUNT 8.5 K/uL (1.8-6.4); PLATELET COUNT 131 K/uL (156-360); RBC DIS.WIDTH-CV 17.9 % (11.8-14.6); RED BLOOD COUNT 3.65 M/uL (4.00-5.50); WHITE BLOOD COUNT 11.1 K/uL (4.1-10.2)
[2017-10-11 06:28] LABS: CHLORIDE 105 MEQ/L (99-109); CREATININE 0.6 MG/DL (0.6-1.3); GFR ESTIMATE (CALCULATED) > 59 mL/min/ (58.99-99999); GLUCOSE 102 mg/dL (70-99); PHOSPHORUS 3.5 mg/dL (2.5-4.9); POTASSIUM 4.5 MEQ/L (3.7-5.4); SODIUM 136 MEQ/L (136-147); UREA NITROGEN (BUN) 13 mg/dL (9-23)
[2017-10-11 07:40] VITALS: BP 118/69
[2017-10-11 11:20] VITALS: BP 112/69
[2017-10-11 15:22] VITALS: BP 110/58
[2017-10-11 19:48] VITALS: BP 122/73
[2017-10-11 23:26] VITALS: BP 123/68
[2017-10-12 03:57] VITALS: BP 143/65
[2017-10-12 06:43] LABS: BASOPHIL (%) 0.3 % (0-1); EOSINOPHIL (%) 0.7 % (0-5); EOSINOPHIL COUNT 0.1 K/uL (0-0.3); HEMATOCRIT 26.8 % (38.0-50.0); HEMOGLOBIN 8.6 G/DL (12.5-16.6); IMMATURE GRANULOCYTE (%) 0.5 % (0.0-0.7); LYMPHOCYTE (%) 5.3 % (15-42); LYMPHOCYTE COUNT 0.5 K/uL (1.0-2.8); MCH 25.1 PG (29.0-34.0); MCHC 32.1 G/DL (30.0-36.0); MCV 78.1 FL (86-99); MONOCYTE (%) 16.7 % (3-12); MONOCYTE COUNT 1.5 K/uL (0-0.8); NEUTROPHIL (%) 76.5 % (45-76); NEUTROPHIL COUNT 6.7 K/uL (1.8-6.4); PLATELET COUNT 123 K/uL (156-360); RBC DIS.WIDTH-CV 18.1 % (11.8-14.6); RBC DIS.WIDTH-SD 50.4 % (39-53); RED BLOOD COUNT 3.43 M/uL (4.00-5.50); WHITE BLOOD COUNT 8.7 K/uL (4.1-10.2)
[2017-10-12 06:55] VITALS: BP 113/59
[2017-10-12 07:05] LABS: CHLORIDE 104 MEQ/L (99-109); CREATININE 0.5 MG/DL (0.6-1.3); GFR ESTIMATE (CALCULATED) > 59 mL/min/ (58.99-99999); GLUCOSE 106 mg/dL (70-99); MAGNESIUM 1.9 mg/dl (1.3-2.7); PHOSPHORUS 2.8 mg/dL (2.5-4.9); POTASSIUM 4.3 MEQ/L (3.7-5.4); SODIUM 134 MEQ/L (136-147); UREA NITROGEN (BUN) 11 mg/dL (9-23)
[2017-10-12 07:06] LABS: ALKALINE PHOSPHATASE 63 IU/L (3-129); ALT (GPT) 8 IU/L (3-49); AST (GOT) 13 IU/L (2-34); CHLORIDE 103 MEQ/L (99-109); CREATININE 0.5 MG/DL (0.6-1.3); GFR ESTIMATE (CALCULATED) > 59 mL/min/ (58.99-99999); GLUCOSE 107 mg/dL (70-99); POTASSIUM 4.3 MEQ/L (3.7-5.4); SODIUM 134 MEQ/L (136-147); TOTAL PROTEIN 5.9 G/DL (6.4-8.3); UREA NITROGEN (BUN) 12 mg/dL (9-23)
[2017-10-12 07:11] LABS: TOTAL BILIRUBIN 0.3 MG/DL (0.0-1.0)
[2017-10-12 11:07] VITALS: BP 111/62
[2017-10-12 15:27] VITALS: BP 118/72
[2017-10-12 20:15] VITALS: BP 112/70
[2017-10-12 23:21] VITALS: BP 137/75
[2017-10-13 04:12] VITALS: BP 130/82
[2017-10-13 07:01] VITALS: BP 120/67
[2017-10-13 07:27] LABS: CHLORIDE 103 MEQ/L (99-109); CREATININE 0.5 MG/DL (0.6-1.3); GFR ESTIMATE (CALCULATED) > 59 mL/min/ (58.99-99999); GLUCOSE 104 mg/dL (70-99); PHOSPHORUS 2.2 mg/dL (2.5-4.9); POTASSIUM 4.2 MEQ/L (3.7-5.4); SODIUM 135 MEQ/L (136-147); UREA NITROGEN (BUN) 11 mg/dL (9-23)
[2017-10-13 07:29] LABS: MAGNESIUM 2.2 mg/dl (1.3-2.7)
[2017-10-13 08:30] LABS: BASOPHIL (%) 0.1 % (0-1); EOSINOPHIL (%) 0.6 % (0-5); HEMATOCRIT 26.6 % (38.0-50.0); HEMOGLOBIN 8.6 G/DL (12.5-16.6); IMMATURE GRANULOCYTE (%) 0.4 % (0.0-0.7); LYMPHOCYTE (%) 4.1 % (15-42); LYMPHOCYTE COUNT 0.3 K/uL (1.0-2.8); MCH 25.3 PG (29.0-34.0); MCHC 32.3 G/DL (30.0-36.0); MCV 78.2 FL (86-99); MONOCYTE (%) 18.6 % (3-12); MONOCYTE COUNT 1.3 K/uL (0-0.8); NEUTROPHIL (%) 76.2 % (45-76); NEUTROPHIL COUNT 5.4 K/uL (1.8-6.4); PLATELET COUNT 121 K/uL (156-360); RBC DIS.WIDTH-SD 50.7 % (39-53); WHITE BLOOD COUNT 7.1 K/uL (4.1-10.2)
[2017-10-13 12:10] VITALS: BP 119/62
[2017-10-13 17:15] VITALS: BP 111/57
[2017-10-13 20:15] VITALS: BP 117/64
[2017-10-14] VITALS (7 sets, daily range): BP systolic 103–141; BP diastolic 57–72
[2017-10-14 09:00] LABS: BASOPHIL (%) 0.2 % (0-1); EOSINOPHIL (%) 0.7 % (0-5); HEMATOCRIT 24.6 % (38.0-50.0); IMMATURE GRANULOCYTE (%) 0.5 % (0.0-0.7); LYMPHOCYTE COUNT 0.4 K/uL (1.0-2.8); MCH 25.4 PG (29.0-34.0); MCHC 32.5 G/DL (30.0-36.0); MCV 78.1 FL (86-99); MONOCYTE (%) 16.5 % (3-12); NEUTROPHIL (%) 75.1 % (45-76); NEUTROPHIL COUNT 4.6 K/uL (1.8-6.4); PLATELET COUNT 129 K/uL (156-360); RBC DIS.WIDTH-CV 18.2 % (11.8-14.6); RBC DIS.WIDTH-SD 50.9 % (39-53); RED BLOOD COUNT 3.15 M/uL (4.00-5.50); WHITE BLOOD COUNT 6.1 K/uL (4.1-10.2)
[2017-10-14 09:15] LABS: ALBUMIN 2.8 G/DL (3.2-4.8); ALKALINE PHOSPHATASE 45 IU/L (3-129); CHLORIDE 107 MEQ/L (99-109); CREATININE 0.5 MG/DL (0.6-1.3); DIRECT BILIRUBIN 0.1 mg/dL (0.0-0.3); GFR ESTIMATE (CALCULATED) > 59 mL/min/ (58.99-99999); GLUCOSE 106 mg/dL (70-99); MAGNESIUM 2.2 mg/dl (1.3-2.7); POTASSIUM 4.4 MEQ/L (3.7-5.4); SODIUM 139 MEQ/L (136-147); TOTAL PROTEIN 5.6 G/DL (6.4-8.3); TRIGLYCERIDES 81 MG/DL (Normal: <150); UREA NITROGEN (BUN) 12 mg/dL (9-23)
[2017-10-14 09:17] LABS: ALT (GPT) 16 IU/L (3-49); AST (GOT) 19 IU/L (2-34); PHOSPHORUS 3.1 mg/dL (2.5-4.9); TOTAL BILIRUBIN 0.2 MG/DL (0.0-1.0)
[2017-10-15 06:43] LABS: CHLORIDE 101 MEQ/L (99-109); CREATININE 0.5 MG/DL (0.6-1.3); GFR ESTIMATE (CALCULATED) > 59 mL/min/ (58.99-99999); GLUCOSE 98 mg/dL (70-99); PHOSPHORUS 3.5 mg/dL (2.5-4.9); POTASSIUM 4.3 MEQ/L (3.7-5.4); SODIUM 135 MEQ/L (136-147); UREA NITROGEN (BUN) 11 mg/dL (9-23)
[2017-10-15 08:35] VITALS: BP 105/53
[2017-10-15 09:23] LABS: 24 HR VOLUME 4000 MLS; URINE UREA NITROGEN 18920 MG/24 HR
[2017-10-15 11:00] VITALS: BP 121/73
[2017-10-15 17:06] VITALS: BP 115/69
[2017-10-15 22:51] VITALS: BP 118/67
[2017-10-16 05:50] LABS: BASOPHIL (%) 0.3 % (0-1); EOSINOPHIL (%) 1.1 % (0-5); EOSINOPHIL COUNT 0.1 K/uL (0-0.3); HEMATOCRIT 25.4 % (38.0-50.0); HEMOGLOBIN 8.2 G/DL (12.5-16.6); IMMATURE GRANULOCYTE (%) 0.6 % (0.0-0.7); LYMPHOCYTE (%) 5.6 % (15-42); LYMPHOCYTE COUNT 0.4 K/uL (1.0-2.8); MCH 25.2 PG (29.0-34.0); MCHC 32.3 G/DL (30.0-36.0); MCV 78.2 FL (86-99); MONOCYTE (%) 11.2 % (3-12); MONOCYTE COUNT 0.7 K/uL (0-0.8); NEUTROPHIL (%) 81.2 % (45-76); NEUTROPHIL COUNT 5.2 K/uL (1.8-6.4); PLATELET COUNT 156 K/uL (156-360); RBC DIS.WIDTH-CV 17.9 % (11.8-14.6); RBC DIS.WIDTH-SD 50.4 % (39-53); RED BLOOD COUNT 3.25 M/uL (4.00-5.50); WHITE BLOOD COUNT 6.4 K/uL (4.1-10.2)
[2017-10-16 06:17] LABS: CHLORIDE 102 MEQ/L (99-109); CREATININE 0.4 MG/DL (0.6-1.3); GFR ESTIMATE (CALCULATED) > 59 mL/min/ (58.99-99999); GLUCOSE 112 mg/dL (70-99); POTASSIUM 4.2 MEQ/L (3.7-5.4); SODIUM 135 MEQ/L (136-147); UREA NITROGEN (BUN) 11 mg/dL (9-23)
[2017-10-16 07:40] VITALS: BP 100/53
[2017-10-16 09:20] LABS: MAGNESIUM 1.9 mg/dl (1.3-2.7); PHOSPHORUS 3.1 mg/dL (2.5-4.9)
[2017-10-16 15:35] VITALS: BP 135/84
[2017-10-16 23:17] VITALS: BP 109/60
[2017-10-17 06:58] LABS: CHLORIDE 104 MEQ/L (99-109); CREATININE 0.5 MG/DL (0.6-1.3); GFR ESTIMATE (CALCULATED) > 59 mL/min/ (58.99-99999); GLUCOSE 121 mg/dL (70-99); PHOSPHORUS 3.2 mg/dL (2.5-4.9); POTASSIUM 4.3 MEQ/L (3.7-5.4); SODIUM 136 MEQ/L (136-147); UREA NITROGEN (BUN) 13 mg/dL (9-23)
[2017-10-17 07:20] VITALS: BP 121/62
[2017-10-17 16:21] VITALS: BP 114/70
[2017-10-17 23:53] VITALS: BP 122/71
[2017-10-18 06:40] LABS: CHLORIDE 103 MEQ/L (99-109); CREATININE 0.5 MG/DL (0.6-1.3); GFR ESTIMATE (CALCULATED) > 59 mL/min/ (58.99-99999); GLUCOSE 106 mg/dL (70-99); MAGNESIUM 2.1 mg/dl (1.3-2.7); PHOSPHORUS 2.9 mg/dL (2.5-4.9); POTASSIUM 4.5 MEQ/L (3.7-5.4); SODIUM 137 MEQ/L (136-147); UREA NITROGEN (BUN) 13 mg/dL (9-23)
[2017-10-18 08:00] VITALS: BP 101/54
[2017-10-18 11:49] VITALS: BP 106/59
[2017-10-18 16:23] VITALS: BP 104/55
[2017-10-18 23:02] VITALS: BP 98/52
[2017-10-19 06:18] LABS: HEMATOCRIT 25.1 % (38.0-50.0); HEMOGLOBIN 7.9 G/DL (12.5-16.6); MCH 24.6 PG (29.0-34.0); MCHC 31.5 G/DL (30.0-36.0); MCV 78.2 FL (86-99); RBC DIS.WIDTH-CV 17.6 % (11.8-14.6); RBC DIS.WIDTH-SD 49.4 % (39-53); RED BLOOD COUNT 3.21 M/uL (4.00-5.50); WHITE BLOOD COUNT 5.4 K/uL (4.1-10.2)
[2017-10-19 06:36] LABS: PLATELET COUNT 209 K/uL (156-360)
[2017-10-19 06:38] LABS: CHLORIDE 104 MEQ/L (99-109); CREATININE 0.4 MG/DL (0.6-1.3); GFR ESTIMATE (CALCULATED) > 59 mL/min/ (58.99-99999); GLUCOSE 111 mg/dL (70-99); MAGNESIUM 2.2 mg/dl (1.3-2.7); POTASSIUM 4.7 MEQ/L (3.7-5.4); SODIUM 135 MEQ/L (136-147); UREA NITROGEN (BUN) 15 mg/dL (9-23)
[2017-10-19 07:28] VITALS: BP 109/55
[2017-10-19 16:19] VITALS: BP 97/51
[2017-10-19 17:11] VITALS: BP 105/65
[2017-10-19 17:49] VITALS: BP 105/63
[2017-10-19 18:49] VITALS: BP 101/59
[2017-10-19 20:45] VITALS: BP 111/75
[2017-10-20 06:30] LABS: HEMATOCRIT 28.3 % (38.0-50.0); HEMOGLOBIN 9.1 G/DL (12.5-16.6); MCHC 32.2 G/DL (30.0-36.0); MCV 77.7 FL (86-99); PLATELET COUNT 218 K/uL (156-360); RBC DIS.WIDTH-CV 17.6 % (11.8-14.6); RBC DIS.WIDTH-SD 49.3 % (39-53); RED BLOOD COUNT 3.64 M/uL (4.00-5.50); WHITE BLOOD COUNT 7.5 K/uL (4.1-10.2)
[2017-10-20 06:51] LABS: CHLORIDE 99 MEQ/L (99-109); CREATININE 0.6 MG/DL (0.6-1.3); GFR ESTIMATE (CALCULATED) > 59 mL/min/ (58.99-99999); GLUCOSE 97 mg/dL (70-99); MAGNESIUM 1.9 mg/dl (1.3-2.7); POTASSIUM 4.2 MEQ/L (3.7-5.4); SODIUM 133 MEQ/L (136-147); UREA NITROGEN (BUN) 11 mg/dL (9-23)
[2017-10-20 07:20] VITALS: BP 103/62
[2017-10-20 08:09] VITALS: BP 103/62
[2017-10-20 08:28] LABS: ALBUMIN 2.7 G/DL (3.2-4.8)
[2017-10-20 16:42] VITALS: BP 124/62
[2017-10-20 23:13] VITALS: BP 109/61
[2017-10-21 06:49] LABS: HEMATOCRIT 28.4 % (38.0-50.0); MCH 24.5 PG (29.0-34.0); MCHC 31.7 G/DL (30.0-36.0); MCV 77.4 FL (86-99); PLATELET COUNT 226 K/uL (156-360); RBC DIS.WIDTH-CV 17.4 % (11.8-14.6); RBC DIS.WIDTH-SD 49.3 % (39-53); RED BLOOD COUNT 3.67 M/uL (4.00-5.50); WHITE BLOOD COUNT 7.1 K/uL (4.1-10.2)
[2017-10-21 07:15] LABS: CHLORIDE 98 MEQ/L (99-109); CREATININE 0.6 MG/DL (0.6-1.3); GFR ESTIMATE (CALCULATED) > 59 mL/min/ (58.99-99999); GLUCOSE 98 mg/dL (70-99); POTASSIUM 4.1 MEQ/L (3.7-5.4); SODIUM 133 MEQ/L (136-147); UREA NITROGEN (BUN) 11 mg/dL (9-23)
[2017-10-21 08:23] VITALS: BP 110/73
[2017-10-21 14:40] VITALS: BP 109/62
[2017-10-21 22:58] VITALS: BP 97/53
[2017-10-22 07:58] VITALS: BP 111/67
[2017-10-22 12:07] VITALS: BP 115/66
[2017-10-22 15:54] VITALS: BP 104/56
[2017-10-22 23:34] VITALS: BP 105/56
[2017-10-23 07:15] VITALS: BP 93/52
[2017-10-23 15:40] VITALS: BP 92/53
[2017-10-24 00:17] VITALS: BP 99/55
[2017-10-24 00:18] VITALS: BP 115/53; BP 99/55
[2017-10-24 04:07] LABS: HEMATOCRIT 28.5 % (38.0-50.0); HEMOGLOBIN 9.2 G/DL (12.5-16.6); MCV 78.3 FL (86-99)
[2017-10-24 09:04] VITALS: BP 108/58
[2017-10-24 16:23] VITALS: BP 124/75
[2017-10-24 20:31] LABS: BILIRUBIN NEGATIVE; BLOOD LARGE; GLUCOSE (STRIP) NEGATIVE; KETONES NEGATIVE; LEUKOCYTES NEGATIVE; NITRITE NEGATIVE; PROTEIN (STRIP) 100; SPECIFIC GRAVITY 1.024 (1.000-1.030)
[2017-10-24 20:33] LABS: APPEARANCE TURBID ((CLEAR)); COLOR RED ((YELLOW))
[2017-10-24 20:43] LABS: RED BLOOD CELLS TNTC /HPF (0-5)
[2017-10-24 23:53] VITALS: BP 133/88
[2017-10-25 06:11] LABS: HEMATOCRIT 28.3 % (38.0-50.0); MCH 24.9 PG (29.0-34.0); MCHC 31.8 G/DL (30.0-36.0); MCV 78.2 FL (86-99); PLATELET COUNT 273 K/uL (156-360); RBC DIS.WIDTH-CV 17.2 % (11.8-14.6); RBC DIS.WIDTH-SD 49.1 % (39-53); RED BLOOD COUNT 3.62 M/uL (4.00-5.50); WHITE BLOOD COUNT 9.4 K/uL (4.1-10.2)
[2017-10-25 06:42] LABS: CHLORIDE 97 MEQ/L (99-109); CREATININE 0.6 MG/DL (0.6-1.3); GFR ESTIMATE (CALCULATED) > 59 mL/min/ (58.99-99999); GLUCOSE 94 mg/dL (70-99); POTASSIUM 3.9 MEQ/L (3.7-5.4); SODIUM 133 MEQ/L (136-147); UREA NITROGEN (BUN) 9 mg/dL (9-23)
[2017-10-25 16:07] VITALS: BP 124/59
[2017-10-26] VITALS (8 sets, daily range): BP systolic 11–123; BP diastolic 50–94
[2017-10-26 06:10] LABS: BASOPHIL (%) 0.4 % (0-1); EOSINOPHIL (%) 1.1 % (0-5); EOSINOPHIL COUNT 0.1 K/uL (0-0.3); HEMATOCRIT 26.3 % (38.0-50.0); HEMOGLOBIN 8.3 G/DL (12.5-16.6); IMMATURE GRANULOCYTE (%) 0.4 % (0.0-0.7); LYMPHOCYTE (%) 7.8 % (15-42); LYMPHOCYTE COUNT 0.4 K/uL (1.0-2.8); MCH 24.6 PG (29.0-34.0); MCHC 31.6 G/DL (30.0-36.0); MCV 77.8 FL (86-99); MONOCYTE (%) 17.1 % (3-12); MONOCYTE COUNT 0.8 K/uL (0-0.8); NEUTROPHIL (%) 73.2 % (45-76); NEUTROPHIL COUNT 3.3 K/uL (1.8-6.4); PLATELET COUNT 251 K/uL (156-360); RBC DIS.WIDTH-SD 48.2 % (39-53); RED BLOOD COUNT 3.38 M/uL (4.00-5.50); WHITE BLOOD COUNT 4.5 K/uL (4.1-10.2)
[2017-10-26 06:35] LABS: ALBUMIN 2.4 G/DL (3.2-4.8); ALKALINE PHOSPHATASE 34 IU/L (3-129); ALT (GPT) 17 IU/L (3-49); AST (GOT) 16 IU/L (2-34); CHLORIDE 96 MEQ/L (99-109); CREATININE 0.5 MG/DL (0.6-1.3); DIRECT BILIRUBIN 0.1 mg/dL (0.0-0.3); GFR ESTIMATE (CALCULATED) > 59 mL/min/ (58.99-99999); GLUCOSE 104 mg/dL (70-99); PHOSPHORUS 3.3 mg/dL (2.5-4.9); POTASSIUM 3.5 MEQ/L (3.7-5.4); SODIUM 134 MEQ/L (136-147); TOTAL BILIRUBIN 0.4 MG/DL (0.0-1.0); TOTAL PROTEIN 5.7 G/DL (6.4-8.3); TRIGLYCERIDES 91 MG/DL (Normal: <150); UREA NITROGEN (BUN) 7 mg/dL (9-23)
[2017-10-26 06:39] LABS: PREALBUMIN 3.5 mg/dL (10-40)
[2017-10-26 13:57] LABS: HEMATOCRIT 25.5 % (38.0-50.0); HEMOGLOBIN 8.3 G/DL (12.5-16.6); MCV 79.2 FL (86-99)
[2017-10-27 03:18] VITALS: BP 105/60
[2017-10-27 05:31] LABS: HEMOGLOBIN 8.4 G/DL (12.5-16.6); MCV 79.4 FL (86-99)
[2017-10-27 05:58] LABS: CHLORIDE 105 MEQ/L (99-109); CREATININE 0.5 MG/DL (0.6-1.3); GFR ESTIMATE (CALCULATED) > 59 mL/min/ (58.99-99999); GLUCOSE 92 mg/dL (70-99); SODIUM 140 MEQ/L (136-147); UREA NITROGEN (BUN) 5 mg/dL (9-23)
[2017-10-27 16:19] VITALS: BP 119/70
[2017-10-27 20:34] VITALS: BP 135/79
[2017-10-28 00:04] VITALS: BP 112/62
== END 2017-10-28 00:54 | disposition short-term general hospital (02) | DRG 690 ==
LOC: EME 03:49 → EDOF 07:45 → 5EAST 07:45 → ENRESERV 07:49 → 5EAST 10:30 → ENRESERV 10-26 13:21 → 4EAST 10-26 14:34
PROVIDERS: Emergency Medicine; Family Medicine; Hospitalist; Internal Medicine; Physician Assistant
PROC: 3E0436Z Introduction of Nutritional Substance into Central Vein, Percutaneous Approach (ICD-10-PCS; principal; 2017-10-07)
PROC: 30233N1 Transfusion of Nonautologous Red Blood Cells into Peripheral Vein, Percutaneous Approach (ICD-10-PCS; 2017-10-19)
DX: N10 Acute pyelonephritis (principal); E44.0 Moderate protein-calorie malnutrition; G35 Multiple sclerosis; I95.9 Hypotension, unspecified; C79.89 Secondary malignant neoplasm of other specified sites; B96.20 Unspecified Escherichia coli [E. coli] as the cause of diseases classified elsewhere; L02.31 Cutaneous abscess of buttock; K60.4 Rectal fistula; C19 Malignant neoplasm of rectosigmoid junction; D63.0 Anemia in neoplastic disease; J44.9 Chronic obstructive pulmonary disease, unspecified; K21.9 Gastro-esophageal reflux disease without esophagitis; G89.29 Other chronic pain; Z93.6 Other artificial openings of urinary tract status; Z87.440 Personal history of urinary (tract) infections; Z87.442 Personal history of urinary calculi; Z90.49 Acquired absence of other specified parts of digestive tract; Z93.3 Colostomy status
CPT/HCPCS: 72132; 74177; 76882; 76937; 80048; 80053; 80076; 80202; 81003; 81050; 82040; 82248; 82948; 83605; 83690; 83735; 84100; 84134; 84478; 84540; 84630 90; 85014; 85018; 85025; 85027; 86850; 86900; 86901; 86920; 87040; 87070; 87075; 87076; 87077; 87086 GA; 87185; 87186; 87205; 93970; 99202; 99281; 99285; A6214; C1894; J0692; J0696; J1170; J1650; J1885; J2354; J2405; J2765; J2997; J3010; J3370; J7030; J7050; P9016

== ENCOUNTER → 2017-11-06 | Outpatient (CLI) | payer OTHER ==
[~2017-11-06] MED LIST changes: +FLEXERIL5 MG PO; +FLOMAX0.4 MG PO; +MIRALAX17 GM PO; +NEURONTIN100 MG PO
== END | disposition home or self-care (01) ==
LOC: RAD 14:32
DX: S37.30XA Unspecified injury of urethra, initial encounter (principal); N99.522 Malfunction of incontinent external stoma of urinary tract
CPT/HCPCS: 50435; 75984; C1725; C1769

== ENCOUNTER 2017-11-11 06:20 | Emergency (ER) | payer OTHER ==
[~2017-11-11] VITALS: Ht 180.3 cm; Wt 76.8 kg
[2017-11-11 06:58] LABS: HEMATOCRIT 28.5 % (38.0-50.0); HEMOGLOBIN 9.2 G/DL (12.5-16.6); MCH 25.1 PG (29.0-34.0); MCHC 32.3 G/DL (30.0-36.0); MCV 77.7 FL (86-99); PLATELET COUNT 215 K/uL (156-360); RBC DIS.WIDTH-CV 17.8 % (11.8-14.6); RBC DIS.WIDTH-SD 50.1 % (39-53); RED BLOOD COUNT 3.67 M/uL (4.00-5.50); WHITE BLOOD COUNT 6.4 K/uL (4.1-10.2)
[2017-11-11 07:41] LABS: CHLORIDE 97 MEQ/L (99-109); CREATININE 0.7 MG/DL (0.6-1.3); GFR ESTIMATE (CALCULATED) > 59 mL/min/ (58.99-99999); GLUCOSE 119 mg/dL (70-99); POTASSIUM 3.3 MEQ/L (3.7-5.4); SODIUM 133 MEQ/L (136-147); UREA NITROGEN (BUN) 8 mg/dL (9-23)
[2017-11-11 08:58] LABS: APPEARANCE CLOUDY ((CLEAR)); BILIRUBIN NEGATIVE; BLOOD MODERATE; COLOR YELLOW ((YELLOW)); GLUCOSE (STRIP) NEGATIVE; KETONES NEGATIVE; LEUKOCYTES LARGE; NITRITE NEGATIVE; PROTEIN (STRIP) 100; SPECIFIC GRAVITY 1.013 (1.000-1.030)
[2017-11-11 09:23] LABS: BACTERIA 2+ /HPF; EPITHELIAL CELLS NONE SEEN /HPF; MUCUS NONE SEEN /LPF; RED BLOOD CELLS 40-50 /HPF (0-5); WHITE BLOOD CELLS 30-40 /HPF (0-5)
[2017-11-11 20:13] VITALS: BP 108/59
== END 2017-11-11 20:14 | disposition hospice, home (50) ==
LOC: EME 06:20
PROVIDERS: Physician Assistant
DX: G89.3 Neoplasm related pain (acute) (chronic) (principal); C19 Malignant neoplasm of rectosigmoid junction; Z51.5 Encounter for palliative care; Z93.3 Colostomy status; Z66 Do not resuscitate; K21.9 Gastro-esophageal reflux disease without esophagitis; Z87.442 Personal history of urinary calculi; Z93.6 Other artificial openings of urinary tract status
CPT/HCPCS: 74177; 80048; 81003; 85027; 99281; 99285; J2270; J3010; J7030